=== PATIENT | female | born 1945 | race Caucasian/White ===

== ENCOUNTER → 2017-05-26 | Outpatient (CLI) | payer MEDICARE ==
[~2017-05-26] MED LIST: AMLO10TA2 PO; ATOR20TA15 PO; BIOT1000 PO; CALC600T25 PO; CINN500C13 PO; MULT-65 PO; SERT-129 PO; VITA1000 PO
--- NOTE | 2017-05-26 12:45 | RADRPT ---
EXAM DATE/TIME: 05/26/2017 12:07 [facility] COMPARISON: No previous studies available for comparison. INDICATIONS : Evaluate for pneumonia, pneumothorax, or communicable disease. Pre-op hysterectomy June 01, 2017. MEDICAL HISTORY : None. SURGICAL HISTORY : None. ENCOUNTER: Initial ACUITY: 1 day PAIN SCORE: 0/10 LOCATION: Bilateral chest FINDINGS: PA and lateral views of the chest demonstrate partial opacification of the right hemithorax from what appears to be a large right pleural effusion. Left lung is well-expanded and clear. Heart is normal in size. CONCLUSION: 1. Partial opacification of the right hemithorax from suspected moderate to large pleural effusion 2. Normal size heart and clear left lung. Augie Lima MD on May 26, 2017 at 12:42 Board Certified Radiologist. This report was verified electronically.
[2017-05-26 13:19] LABS: BLOOD, URINE NEG (NEG); CALCIUM OXALATE CRYSTALS,URINE FEW /hpf; GLUCOSE,URINE NEG (NEG); KETONE, URINE NEG (NEG); MUCUS URINE FEW /lpf (OCC); NITRITE,URINE NEG (NEG); SQUAMOUS EPITHELIAL CELL URINE <1 /hpf (0-5); URINE COLOR YELLOW (YELLW/STRAW)
== END ==
LOC: CPRE 11:12
PROVIDERS: ATTEND Obstetrics & Gynecology
DX: Z01.811 Encounter for preprocedural respiratory examination (principal); Z01.812 Encounter for preprocedural laboratory examination; R93.8 Abnormal findings on diagnostic imaging of other specified body structures
CPT/HCPCS: 71020; 81001

== ENCOUNTER 2017-06-01 05:55 | Day surgery (SDC) | payer MEDICARE ==
[~2017-06-01] VITALS: Ht 167.6 cm; Wt 66.8 kg
[2017-06-01] MEDS ORDERED: ceFAZolin 2 GM PREMIX 50 ML IV SCH (06:15)
[2017-06-01] MEDS ORDERED: POVIDONE IODINE 5% (ANTISEPSIS KIT) 4 APPLICATIONS EACH NARE PRN (06:15)
[2017-06-01] MEDS ORDERED: INSULIN HUMAN REGULAR 1,000 UNITS/10 ML VIAL SQ PRN (06:15)
[2017-06-01] MEDS ORDERED: LACTATED RINGER'S 1000 ML IV PRN (06:15)
[2017-06-01] MEDS ORDERED: SODIUM CHLORID 0.9% 500 ML IV PRN (06:15)
[2017-06-01] MEDS ORDERED: CHLORHEXIDINE GLUCONATE 2 % 1 PACK (2 CLOTHS) TOPICAL PRN (06:15)
[2017-06-01] MEDS ORDERED: METOPROLOL TARTRATE 25 MG TAB PO PRN (06:15)
[2017-06-01 06:37] VITALS: BP 142/66; PULSE 85; RESP 20; TEMP 98.3; O2SAT 95
[2017-06-01] MEDS ORDERED: MICROFIBRILLAR COLLAGEN HEMOSTAT 1 GM PKT ONE (07:15)
[2017-06-01] MEDS ORDERED: BUPIVACAINE HCL PF 0.25% 30 ML VIAL ONE (07:15)
[2017-06-01] MEDS ORDERED: ESTROGENS CONJUGATED VAG CREA 15 APPL/30 GM TUBE ONE (07:16)
[2017-06-01] MEDS ORDERED: FAMOTIDINE 20 MG/2 ML VIAL ONE (07:24)
[2017-06-01] MEDS ORDERED: ACETAMINOPHEN 1000 MG/100 ML VIAL IV ONE (07:24)
[2017-06-01] MEDS ORDERED: IOHEXOL 350 MG/ML 10 ML VIAL (for RAD DIAG) IV ONE (10:08)
--- NOTE | 2017-06-01 10:29 | RADRPT ---
EXAM DATE/TIME: 06/01/2017 10:03 [facility] COMPARISON: CHEST PA & LAT, May 26, 2017, 12:07. INDICATIONS : Pleural effusion seen on chest x-ray. IV CONTRAST: 70 cc Omnipaque 350 (iohexol) IV RADIATION DOSE: 3.36 CTDIvol (mGy) MEDICAL HISTORY : Hypertension. SURGICAL HISTORY : None. ENCOUNTER: Initial ACUITY: 1 day PAIN SCALE: 0/10 LOCATION: chest TECHNIQUE: Volumetric scanning of the chest was performed. Using automated exposure control and adjustment of t he mA and/or kV according to patient size, radiation dose was kept as low as reasonably achievable to obtain optimal diagnostic quality images. DICOM format image data is available electronically for review and comparison. Follow-up recommendations for detected pulmonary nodules are based at a minimum on nodule size and pa tient risk factors according to Fleischner Society Guidelines. FINDINGS: LUNGS: There is a moderate to large right pleural effusion. This increased density in the right middle lobe and the inferior medial right lower lobe. The right lower lobe area of increased density appears more prominent especially inferiorly. An underlying mass cannot be excluded. The left lung is clear. PLEURA: There is a moderate to large right pleural effusion. No left effusion is seen. MEDIASTINUM: The heart and great vessels demonstrate no acute abnormality. There is no mediastinal or hilar lymph adenopathy. AXILLAE: Within normal limits. No lymphadenopathy. SKELETAL: Spurs are seen in the thoracic spine. MISCELLANEOUS: The visualized upper abdominal organs demonstrate no acute abnormality. CONCLUSION: Moderate to large right pleural effusion with increased density in the right lower lobe and right mid dle lobe. Some of this increased density is likely related to atelectasis given effusions. An underly ing processes in these areas of collapsed lung cannot be excluded. Caleb Hu MD on June 01, 2017 at 10:16 Board Certified Radiologist. This report was verified electronically.
[2017-06-01 11:50] VITALS: BP 137/63; PULSE 67; RESP 16; TEMP 97.2; O2SAT 96
[2017-06-01 13:05] VITALS: BP 128/65; PULSE 71; RESP 18; O2SAT 98
--- NOTE | 2017-06-01 13:14 | RADRPT ---
EXAM DATE/TIME: 06/01/2017 12:14 [facility] COMPARISON: CHEST PA & LAT, May 26, 2017, 12:07. INDICATIONS : Post thoracentesis right side, feels pressure in the right upper chest MEDICAL HISTORY : Hypertension. SURGICAL HISTORY : None. ENCOUNTER: Subsequent ACUITY: 1 day PAIN SCORE: 5/10 LOCATION: Right chest FINDINGS: There is no pneumothorax status-post right thoracentesis. There is a tiny residual right pleural eff usion. Right basilar atelectasis is noted. The heart is stable. The left lung is clear. CONCLUSION: 1. No pneumothorax status-post right thoracentesis. 2. Interval significant improvement of the right pleural effusion with tiny residual effusion noted. 3. Right basilar patchiness consistent with probable atelectasis and/or infiltrate. Cristian Garcia MD on June 01, 2017 at 12:43 Board Certified Radiologist. This report was verified electronically.
--- NOTE | 2017-06-01 13:54 | RADRPT ---
EXAM DATE/TIME: 06/01/2017 11:35 [facility] COMPARISON: No previous studies available for comparison. INDICATIONS : Right pleural effusion. MEDICAL HISTORY : Diverticulosis. Cataracts. HTN. Hemorrhoids. Fibroids. Ovarian cysts. Osteopenia. Vitamin D deficie ncy. Atypical cells on cervix. SURGICAL HISTORY : D&C. ENCOUNTER: Initial ACUITY: 1 day PAIN SCORE: 3/10 LOCATION: Right chest FLUID: Total volume of 1400 cc of bloody fluid was removed. Fluid was sent to lab for ordered studies. TECHNIQUE: 1. Ultrasound guidance for thoracentesis. 2. Thoracentesis. The risks, benefits, and alternatives to ultrasound guided thoracentesis were explained to the patien t in lay simple terms, including the risk of bleeding and infection. Written and verbal informed con sent was obtained. Appropriate area for thoracentesis was marked under ultrasound guidance with the patient in the uprig ht position. Overlying skin was prepped and draped in the usual sterile fashion and with local anest hetic, a dermatotomy was made with an 11 blade scalpel. A 6 Slovak thoracentesis catheter was placed in the pleural space and fluid was removed. Catheter was then removed and a sterile dressing applie d. There were no immediate complications. The patient tolerated the procedure well and the left the ultrasound suite in stable condition. Chest radiograph is to be obtained. CONCLUSION: Uncomplicated ultrasound guided thoracentesis. Cristian Garcia MD on June 01, 2017 at 13:49 Board Certified Radiologist. This report was verified electronically.
== END 2017-06-01 13:20 | disposition home or self-care (01) ==
LOC: HSDC 05:55 → EDUNIT# 08:00 → HSDC 13:20
PROVIDERS: ATTEND Obstetrics & Gynecology
DX: J90 Pleural effusion, not elsewhere classified (principal); R93.8 Abnormal findings on diagnostic imaging of other specified body structures; D25.9 Leiomyoma of uterus, unspecified; N83.201 Unspecified ovarian cyst, right side; R87.619 Unspecified abnormal cytological findings in specimens from cervix uteri; I10 Essential (primary) hypertension; E55.9 Vitamin D deficiency, unspecified; E78.5 Hyperlipidemia, unspecified; M85.80 Other specified disorders of bone density and structure, unspecified site; F32.9 Major depressive disorder, single episode, unspecified; Z53.09 Procedure and treatment not carried out because of other contraindication; Z87.891 Personal history of nicotine dependence; Z79.899 Other long term (current) drug therapy
CPT/HCPCS: 32555; 71010; 71260; 86850; 86900; 86901; 88112; 88305; 88341; 88342; C1729; G0463; J0690; J7120; Q9967; 99211; J0131

== ENCOUNTER 2017-06-22 07:52 | Day surgery (SDC) | payer MEDICARE ==
[~2017-06-22] VITALS: Ht 167.6 cm; Wt 65.9 kg
[2017-06-22] VITALS (9 sets, daily range): BP systolic 104–147; BP diastolic 49–75; PULSE 60–80; RESP 17–19; TEMP 97.6–97.8; O2SAT 92–97
[2017-06-22] MEDS ORDERED: SODIUM CHLOR 0.9% 1000 ML IV SCH (08:30)
[2017-06-22 08:42] LABS: AUTOMATED NEUTROPHIL # 3.3 TH/MM3 (1.8-7.7); BASOPHIL % 0.6 % (0.0-2.0); EOSINOPHIL # 0.3 TH/MM3 (0-0.4); EOSINOPHIL % 5.9 % (0.0-4.0); HEMATOCRIT 42.9 % (35.0-46.0); HEMO FLAGS DIFF FINAL; LYMPH % 27.6 % (9.0-44.0); LYMPHOCYTE # 1.6 TH/MM3 (1.0-4.8); MEAN CELL VOLUME 87.5 FL (80.0-100.0); MEAN CORPUSCULAR HGB CONC 33.1 % (32.0-36.0); MONO % 9.5 % (0.0-8.0); NEUT % 56.4 % (16.0-70.0); PLATELET COUNT 266 TH/MM3 (150-450); RED CELL DISTRIBUTION WIDTH 13.9 % (11.6-17.2); WHITE BLOOD COUNT 5.8 TH/MM3 (4.0-11.0)
[2017-06-22 08:54] LABS: APTT (PATIENT) 26.5 SEC (24.3-30.1)
[2017-06-22] MEDS ORDERED: LIDOCAINE HCL 1% 20 ML VIAL ONE (08:57)
[2017-06-22] MEDS ORDERED: MIDAZOLAM HCL 2 MG/2 ML VIAL ONE (09:04)
--- NOTE | 2017-06-22 09:52 | PD.RAD ---
Post CT Procedure Prog Note Pre Procedure Diagnosis: (1) Cancer Post Procedure Diagnosis: (1) Cancer Procedure Date: Jun 22, 2017 Supervising Radiologist: Bam Littlejohn Anesthesia: Conscious Sedation Plan of Activity Patient to Unit: [facility] Patient Condition: Good See PACS Report for procedural detail/treatment Biopsy Imaging Guidance: CT Side: Right Biopsy Procedure: Lung Specimen: Core Biopsy Bam Littlejohn MD Jun 22, 2017 09:52
--- NOTE | 2017-06-22 10:22 | RADRPT ---
EXAM DATE/TIME: 06/22/2017 09:15 [facility] COMPARISON: No previous studies available for comparison. INDICATIONS : Right lung mass SEDATION TIME: 30 minutes BIOPSY SITE: Right lung MEDICATION(S): 1.) 2 mg midazolam (Versed) IV 2.) 100 mcg fentanyl (Sublimaze) IV DEVICE(S): 1.) 18 gauge Crawford blunt needle 2.) 20 gauge Temno core biopsy needle MEDICAL HISTORY : Hypertension. SURGICAL HISTORY : None. ENCOUNTER: Initial ACUITY: 1 day PAIN SCORE: 0/10 LOCATION: Right chest A total of three core specimen(s) were obtained and sent to the laboratory for pathologic evaluation. PROCEDURE: 1. CT guided lung biopsy. Prior to the procedure informed consent was obtained. Any appropriate prior imaging studies were rev iewed. Using automated exposure control and adjustment of the mA and/or kV according to patient size, radiation dose was kept as low as reasonably achievable to obtain optimal diagnostic quality images. DICOM format image data is available electronically for review and comparison. The site was prepped in a sterile fashion. Full sterile technique was used, including cap, mask, gen rile gloves and gown and a large sterile sheet. Hand hygiene and 2% chlorhexidine and/or betadine/al cohol prep was utilized per protocol for cutaneous antisepsis. The skin and subcutaneous tissues wer e infiltrated with local anesthetic solution. With CT guidance the previously identified target was localized. Biopsy was performed using the presc ribed needle as above. Adequate hemostasis was obtained with compression at the puncture site. Follow-up CT scan reveals no pneumothorax. Conscious sedation was performed with the prescribed dosages and duration as above in the presence of an independent trained radiology nurse to assist in the monitoring of the patient. EKG and oximetry remained stable throughout the procedure. The patient tolerated the procedure well and there were no complications. The patient was sent to Radiology Outpatient Unit in stable condition. CONCLUSION: Uncomplicated CT guided biopsy. Bam Littlejohn MD on June 22, 2017 at 10:21 Board Certified Radiologist. This report was verified electronically.
--- NOTE | 2017-06-22 10:41 | RADRPT ---
EXAM DATE/TIME: 06/22/2017 10:18 [facility] COMPARISON: No previous studies available for comparison. INDICATIONS : Post right lung biopsy. MEDICAL HISTORY : Diverticulosis. Cataracts. HTN. Hemorrhoids. Fibroids. Ovarian cysts.Osteopenia. Vitamin D deficiency . Atypical cells on cervix. SURGICAL HISTORY : D & C. ENCOUNTER: Subsequent ACUITY: 1 day PAIN SCORE: 0/10 LOCATION: Right chest FINDINGS: The cardiac silhouette is normal in transverse diameter. There is no evidence of pneumothorax. A mod erate size right sided effusion is present. The mass in the right base is again identified. CONCLUSION: 1. No evidence of pneumothorax following biopsy Bam Littlejohn MD on June 22, 2017 at 10:38 Board Certified Radiologist. This report was verified electronically.
[2017-06-22] MEDS ORDERED: oxyCODONE/ACETAMINOPHEN 5 MG/325 MG TAB PO PRN (11:00)
--- NOTE | 2017-06-22 12:21 | RADRPT ---
EXAM DATE/TIME: 06/22/2017 11:46 [facility] COMPARISON: CHEST EXPIRATION ONLY, June 22, 2017, 10:18. INDICATIONS : Evaluate for pneumothorax post right biopsy. MEDICAL HISTORY : Diverticulosis. Cataracts. HTN. Hemorrhoids. Fibroids. Ovarian Cysts SURGICAL HISTORY : D and C ENCOUNTER: Subsequent ACUITY: 1 day PAIN SCORE: 0/10 LOCATION: chest FINDINGS: The cardiac silhouette is normal in transverse diameter. Right lower lobe mass again identified with right-sided effusion. The left lung is free of acute parenchymal opacity. There is no evidence of pn eumothorax. CONCLUSION: 1. There is no evidence of pneumothorax. Bam Littlejohn MD on June 22, 2017 at 12:17 Board Certified Radiologist. This report was verified electronically.
== END 2017-06-22 13:12 | disposition home or self-care (01) ==
LOC: HRAD 07:52 → HRIP 07:53 → HRAD 13:12
PROVIDERS: ATTEND Internal Medicine Pulmonary Disease
DX: J84.10 Pulmonary fibrosis, unspecified (principal); R91.8 Other nonspecific abnormal finding of lung field
CPT/HCPCS: 32405; 71010; 77012; 85025; 85610; 85730; 88305; J2250; J3010; J7030

== ENCOUNTER 2017-07-26 10:00 | Day surgery (SDC) | payer MEDICARE ==
[~2017-07-26 10:00] MED LIST changes: -CALC600T25 PO; +CALC600T5 PO; -CINN500C13 PO; +CINN500C14 PO
[2017-07-26 10:40] VITALS: BP 142/76; PULSE 76; RESP 16; TEMP 97.4; O2SAT 95
[2017-07-26] MEDS ORDERED: LIDOCAINE HCL 1% 20 ML VIAL ONE (11:09)
[2017-07-26 11:10] VITALS: BP 126/68; PULSE 69; RESP 18; TEMP 97.9; O2SAT 92
--- NOTE | 2017-07-26 11:16 | RADRPT ---
EXAM DATE/TIME: 07/26/2017 11:00 [facility] COMPARISON: CHEST EXPIRATION ONLY, June 22, 2017, 11:46. INDICATIONS : Post right thoracentesis. MEDICAL HISTORY : Hypertension. SURGICAL HISTORY : None. ENCOUNTER: Initial ACUITY: 1 day PAIN SCORE: 0/10 LOCATION: Right chest FINDINGS: A single frontal expiratory view of the chest was performed. Right basilar density likely atelectasis /mass. Mediastinal structures are in the midline. The cardio-mediastinal contours and bronchopulmonary markings are unremarkable for an expiratory exam . Osseous structures are intact. CONCLUSION: Bibasilar density/mass. No pneumothorax. Jeremie Desai MD on July 26, 2017 at 11:14 Board Certified Radiologist. This report was verified electronically.
[2017-07-26 11:30] VITALS: BP 129/67; PULSE 76; RESP 16; O2SAT 97
[2017-07-26 12:17] LABS: TOTAL PROTEIN,PLEURAL FLUID 4.7 GM/DL
--- NOTE | 2017-07-26 16:00 | RADRPT ---
EXAM DATE/TIME: 07/26/2017 10:21 [facility] COMPARISON: No previous studies available for comparison. EXTERNAL COMPARISON: [facility], CT PULMONARY ANGIOGRAM, Jun 10 2017. INDICATIONS : Right pleural effusion. MEDICAL HISTORY : Diverticulosis. Cataracts. HTN. Hemorrhoids. Fibroids. Ovarian cysts. Osteopenia. Vitamin D deficie ncy. Atypical cells on cervix. Depression. Anxiety. SURGICAL HISTORY : D&C. ENCOUNTER: Initial ACUITY: 2 months PAIN SCORE: 0/10 LOCATION: Right chest FLUID: Total volume of 800 cc of clear, red fluid was removed. Fluid was sent to lab for ordered studies. TECHNIQUE: 1. Ultrasound guidance for thoracentesis. 2. Thoracentesis. The risks, benefits, and alternatives to ultrasound guided thoracentesis were explained to the patien t in lay simple terms, including the risk of bleeding and infection. Written and verbal informed con sent was obtained. Appropriate area for thoracentesis was marked under ultrasound guidance with the patient in the uprig ht position. Overlying skin was prepped and draped in the usual sterile fashion and with local anest hetic, a dermatotomy was made with an 11 blade scalpel. A 6 Finnish thoracentesis catheter was placed in the pleural space and fluid was removed. Catheter was then removed and a sterile dressing applie d. There were no immediate complications. The patient tolerated the procedure well and the left the ultrasound suite in stable condition. Chest radiograph is to be obtained. CONCLUSION: Uncomplicated ultrasound guided thoracentesis. Jeremie Desai MD on July 26, 2017 at 15:59 Board Certified Radiologist. This report was verified electronically.
== END 2017-07-26 11:55 | disposition home or self-care (01) ==
LOC: HRAD 10:00 → HRIP 10:03 → HRAD 11:55
PROVIDERS: ATTEND Internal Medicine Pulmonary Disease
DX: J90 Pleural effusion, not elsewhere classified (principal); I10 Essential (primary) hypertension; E55.9 Vitamin D deficiency, unspecified; M85.80 Other specified disorders of bone density and structure, unspecified site
CPT/HCPCS: 32555; 71010; 83615; 84157; 87015; 87070; 87116; 87205; 87206; 88112; 88305; 88341; 88342; C1729